=== PATIENT | male | born 1995 | race Asian ===

== ENCOUNTER 2021-07-17 15:25 | Emergency (ER) | payer SELFPAY ==
[~2021-07-17] VITALS: Ht 175.3 cm; Wt 73.0 kg
[2021-07-17] MEDS ORDERED: IBUP-2029 MT (16:15)
[2021-07-17] MEDS ORDERED: IBUPROFEN 600MG TABLET PO ONE (16:15)
[2021-07-17 17:10] VITALS: BP 125/66
== END 2021-07-17 17:13 | disposition home or self-care (01) ==
LOC: ER 15:25
DX: L84 Corns and callosities (principal); Z90.49 Acquired absence of other specified parts of digestive tract
CPT/HCPCS: 99282